=== PATIENT | female | born 1955 | race Two or more races ===

== ENCOUNTER → 2017-02-21 | Outpatient (CLI) | payer OTHER ==
--- NOTE | 2017-02-21 16:29 | MR ---
EXAMINATION TYPE: MR knee RT wo con DATE OF EXAM: 02/21/2017 4:23 PM COMPARISON: NONE HISTORY: Rt knee pain x 2 months per patient. Pain, effusion, unilateral primary osteoarthritis, rule out torn meniscus all per order. TECHNIQUE: Multiplanar, multisequence images of the knee is performed without IV contrast. FINDINGS: MEDIAL MENISCUS: Anterior horn is intact without tear. There is truncation of posterior horn with viviana bular and linear increased signal extending to articular surface consistent with full-thickness tear LATERAL MENISCUS: Anterior and posterior horns are intact without tear. CRUCIATE LIGAMENTS: The anterior and posterior cruciate ligaments are intact and unremarkable. COLLATERAL LIGAMENTS: The medial collateral ligament and lateral collateral ligament complex are inta ct and unremarkable. EXTENSOR MECHANISM: Visualized quadriceps and patellar tendons are intact. EFFUSION: There is a large suprapatellar joint effusion. POPLITEAL CYST: No popliteal/paul cyst. TRICOMPARTMENT SPACES: There is mild tricompartment joint space loss. No significant spurring is seen . CARTILAGE: There is thinning of articular cartilage medial tibiofemoral compartment with near full-th ickness cartilaginous loss seen. There is no significant cartilage patella noted. BONE MARROW SIGNAL: Some faint heterogeneous increased T2 signal involving posterior medial tibial pl ateau is consistent with mild osseous contusion or bone marrow edema. OTHER: No additional significant abnormality is appreciated. IMPRESSION: 1. Complex full-thickness tear posterior horn of medial meniscus. 2. Large suprapatellar joint effusion. 3. Mild tricompartment degenerative changes as detailed above most pronounced medial tibiofemoral com partment suggesting osteoarthritis. 4. Resolving osseous contusion or bone marrow edema posterior medial tibial plateau.
== END | disposition home or self-care (01) ==
LOC: RADMRIMAIN 15:33
PROVIDERS: ATTEND Orthopaedic Surgery
DX: S83.231A Complex tear of medial meniscus, current injury, right knee, initial encounter (principal); M17.11 Unilateral primary osteoarthritis, right knee